=== PATIENT | female | born 1955 | race Asian ===

== ENCOUNTER 2018-12-04 09:36 | Outpatient (CLI) | payer OTHER ==
--- NOTE | 2018-12-04 17:43 | MRI Report ---
Reason: PAIN IN LEFT KNEE Procedure Date: 12/04/2018 Accession Number: [id number] / [id number] Procedure: MRI - Knee LT W/O CPT Code: FULL RESULT: EXAM: LEFT KNEE MRI WITHOUT CONTRAST EXAM DATE: 12/04/2018 10:25 AM. CLINICAL HISTORY: Left knee pain 1 month post twisting injury. COMPARISON: None. TECHNIQUE: Multiplanar, multisequence T1-weighted and fluid-sensitive sequences of the knee without contrast. Other: None. FINDINGS: Bones: There is a low T1, low T2 signal line through the subchondral bone of the medial tibial condyle. There is extensive marrow edema in the medial tibial condyle. The findings are suggestive of a nondisplaced subchondral fracture. There are medial and lateral compartment osteophytes. There is subchondral fluid in the medial patella facet. Articular Cartilage: There is severe medial compartment cartilage erosion. There is moderate erosion of the medial patellar cartilage. Medial Meniscus: There is a radial tear of the posterior root attachment of the medial meniscus with moderate extrusion. Lateral Meniscus: The lateral meniscus is intact. Cruciate Ligaments: The anterior and posterior cruciate ligaments are intact. Collateral Ligaments: The medial collateral and lateral collateral ligamentous structures are intact. Tendons: The quadriceps, patellar, semimembranosus, and popliteus tendons are unremarkable. Musculature: No edema or fatty atrophy. Other: Moderate sized joint effusion. No popliteal cyst. No loose bodies. The medial and lateral retinacula are intact. The subcutaneous tissues and fat pads are unremarkable. IMPRESSION: 1. Subchondral fracture of the medial tibial condyle. Extensive marrow edema. 2. Moderate medial and patellofemoral compartment osteoarthritis. 3. Moderate-sized joint effusion. 4. Radial tear of the posterior horn of the medial meniscus. [facility]
== END 2018-12-04 09:37 | disposition home or self-care (01) ==
LOC: DI 09:36
PROVIDERS: ATTEND Physician Assistant
DX: S82.132A Displaced fracture of medial condyle of left tibia, initial encounter for closed fracture (principal); M17.12 Unilateral primary osteoarthritis, left knee; M25.462 Effusion, left knee; S83.242A Other tear of medial meniscus, current injury, left knee, initial encounter